=== PATIENT | male | born 1990 | race American Indian/Alaskan Native ===

== ENCOUNTER 2019-05-05 09:55 | Outpatient (CLI) | payer OTHER ==
--- NOTE | 2019-05-05 13:26 | Magnetic Resonance Report ---
MRI RIGHT SHOULDER WITHOUT CONTRAST INDICATION / CLINICAL INFORMATION: NEUROPATHY VS c* RADICULOPATHY. Right shoulder pain from basketball injury COMPARISON: None available. TECHNIQUE: Multisequence, multiplanar images were obtained. FINDINGS: SUPRASPINATUS: There is moderate diffuse thickening and increased intrinsic signal in the distal supr aspinatus tendon consistent with tendinosis. A focal full-thickness tear is suspected in the distal a nterior supraspinatus tendon at its insertion site on the proximal humerus. This tear appears to be c ontinuous with the rotator cuff interval. INFRASPINATUS: No significant abnormality. SUBSCAPULARIS: No significant abnormality. BICEPS TENDON, LONG HEAD: There is mild increased intrinsic signal and thickening in the intra-articu lar portion of the long head of the biceps tendon suggesting a longitudinal tear or tendinosis. No co mplete rupture. No SLAP lesion. GLENOID LABRUM: The anterior, inferior labrum is poorly delineated on this exam suggesting a possible labral tear. The remainder of the labrum is unremarkable. ARTICULAR CARTILAGE: Intact. JOINT SPACE AND CAPSULE: A moderate joint effusion is present. ACROMION and A.C. JOINT: No significant abnormality. SUBACROMIAL/SUBDELTOID SPACE: There is trace fluid in the subdeltoid space. BONES: No significant bone marrow edema. No fracture. No osseous lesion. No significant osteoarthrit ic changes. SUBCUTANEOUS SOFT TISSUES: No significant abnormality. ADDITIONAL FINDINGS: None. IMPRESSION: Focal full-thickness tear in the distal anterior supraspinatus tendon at its insertion site on the hu merus. This appears to extend to involve the rotator cuff interval. Underlying supraspinatus tendinos is is also suspected. Tendinosis versus longitudinal tear in the long head of the biceps tendon, intra-articular portion. Question anterior, inferior labral abnormality/tear. Moderate joint effusion. Trace fluid in the subdeltoid space. Signer Name: Bobby Gr Jr, MD Signed: 05/05/2019 1:21 PM Workstation Name: [id number]
== END 2019-05-05 09:56 | disposition home or self-care (01) ==
LOC: MRI 09:55
PROVIDERS: ATTEND Internal Medicine
DX: M25.411 Effusion, right shoulder (principal)